=== PATIENT | female | born 1990 | race Caucasian/White ===

== ENCOUNTER 2017-10-31 13:31 | Outpatient (CLI) | payer OTHER ==
[2017-10-31] MEDS ORDERED: IOTHALAMATE MEGLUMINE 50 ML VIAL ONE (14:03)
[2017-10-31] MEDS ORDERED: LIDOCAINE 1% 10 ML MDV ONE (14:03)
[2017-10-31] MEDS ORDERED: GADOPENTETATE DIMEGLUMINE 5 ML VIAL IVP ONE ×2 (14:03→14:51)
[2017-10-31] MEDS ORDERED: IOTHALAMATE MEGLUMINE 50 ML VIAL IVP ONE (14:51)
[2017-10-31] MEDS: BUFFERED LIDOCAINE 10 ML SYRINGE IU ONE ×2 (14:53→14:54)
--- NOTE | 2017-10-31 17:26 | XRAY Report ---
FLUOROSCOPICALLY-GUIDED LEFT WRIST INJECTION FOR MR ARTHROGRAM: 10/31/2017 CLINICAL INDICATION: Pain. FINDINGS: Following obtaining informed consent, the patient's left wrist was prepped and draped in the usual sterile fashion. The skin and soft tissues were anesthetized with lidocaine. A butterfly needle was inserted into the radiocarpal joint space, and a combination of iodinated contrast, dilute gadolinium, and lidocaine was injected intraarticularly. The patient tolerated the procedure well. No immediate complications. Spot image reveals no evidence of contrast extravasation. IMPRESSION: SUCCESSFUL LEFT WRIST INJECTION FOR MR ARTHROGRAM. FLUOROSCOPY TIME: 29 seconds; 1 spot image obtained. TD: 10/31/2017 15:53
--- NOTE | 2017-11-01 18:03 | MRI Report ---
EXAM: LEFT WRIST MRI ARTHROGRAM WITH CONTRAST EXAM DATE: 10/31/2017 02:00 PM. CLINICAL HISTORY: Pain in left wrist. COMPARISON: None. TECHNIQUE: Multiplanar, multisequence T1-weighted and fluid-sensitive sequences of the wrist after an arthrographic injection of dilute gadolinium, dictated under a separate exam. Other: None. FINDINGS: Bones: No fractures or subluxations. No marrow edema. No bone lesions. Cartilage: The articular cartilage is unremarkable. Small focal tear lamina triangular fibrocartilage with contrast distal radioulnar joint. Ligaments: The scapholunate and lunotriquetral ligaments are intact. The visualized other intrinsic, extrinsic and collateral ligaments are unremarkable. Tendons: The extensor compartments I through and flexor tendons are unremarkable. Musculature: No edema or fatty atrophy. Other: The contents of the carpal tunnel, including the median nerve, are unremarkable. Guyons canal is unremarkable. No ganglion cysts. The subcutaneous tissues are unremarkable. IMPRESSION: Small focal central tear triangular fibrocartilage with contrast seen at the distal radio ulnar joint. Gonzalez classification 1A (images 8 series 601 and images 7 series 701). RADIA MUSCULOSKELETAL RADIOLOGY SECTION Referring Provider Line: [phone] SITE ID: [id number]
== END 2017-10-31 13:32 | disposition home or self-care (01) ==
LOC: DI 13:31
PROVIDERS: ATTEND Physician Assistant
DX: M25.532 Pain in left wrist (principal)
CPT/HCPCS: 25246; 73222; 77002; Q9961

== ENCOUNTER 2023-09-05 13:01 | Emergency (ER) | payer OTHER ==
[2023-09-05 13:28] VITALS: BP 132/94; O2SAT 99
--- NOTE | 2023-09-05 13:52 | ED Physician Documentation ---
History of Present Illness - Stated complaint Stated Complaint: COUGH/CONGESTION - Chief complaint Chief Complaint: Resp - History obtained from History obtained from: Patient - Additonal information Additional information: The patient comes to the emergency department with chief complaint of runny nose, cough, sore throat, and fatigue for the last 2 days. She states that a lot of people at work have been sick and she thinks she got it there. What prompted her to come to the ER today as she just felt so tired. She does not think she can go to work because she is so tired. No fevers or chills. No other complaints at this time. PD PAST MEDICAL HISTORY - Past Medical History Past Medical History: Yes Cardiovascular: None Respiratory: None Neuro: None Endocrine/Autoimmune: None GI: None CONDUIT BENDER: None : None HEENT: None Psych: Depression Musculoskeletal: None Derm: None - Past Surgical History Past Surgical History: Yes General: Other - Present Medications Home Medications: Ambulatory Orders Medication Instructions Recorded Confirmed buPROPion [Wellbutrin Sr] 300 mg PO DAILY 09/05/23 - Allergies Allergies/Adverse Reactions: Allergies Allergy/AdvReac Type Severity Reaction Status Date / Time No Known Drug Allergies Allergy Verified 09/05/23 13:26 - Social History Does the pt smoke?: No Smoking Status: Never smoker Does the pt drink ETOH?: No Does the pt have substance abuse?: No - Immunizations Immunizations are current?: Yes - POLST Patient has POLST: No PD ED PE NORMAL - Vitals Vital signs reviewed: Yes - General General: Alert and oriented X 3, No acute distress, Well developed/nourished - HEENT HEENT: Atraumatic, PERRL, EOMI, Moist mucous membranes, Pharynx benign - Neck Neck: Supple, no meningeal sign, No adenopathy - Cardiac Cardiac: RRR, No murmur - Respiratory Respiratory: No respiratory distress, Clear bilaterally - Abdomen Abdomen: Soft, Non tender, Non distended - Derm Derm: Normal color, Warm and dry, No rash - Extremities Extremities: No deformity, No edema - Neuro Neuro: Alert and oriented X 3 - Psych Psych: Normal mood, Normal affect Results - Vitals Vitals: Vital Signs - 24 hr 09/05/23 13:19 Temperature 36.9 C Heart Rate 78 Respiratory 16 Rate Blood Pressure 132/94 H O2 Saturation 99 Oxygen O2 Source Room air PD Medical Decision Making - ED course Complexity details: reviewed results, re-evaluated patient, considered differential, d/w patient ED course: The patient's examination was reassuring and her respiratory PCR panel is pending this time. I did not feel any emergent interventions were indicated in the emergency department and I felt she was stable for discharge home. I have given her a work note we have discussed symptomatic management at home and the usual indications for return. Departure - Departure Disposition: Home, Self Care Clinical Impression: Viral syndrome Condition: Stable Instructions: ED Viral Syndrome Comments: Your viral panel is pending at this time. Most likely have one of the many common viruses that are going around and causing upper respiratory symptoms. We will call you if there are any significant positive results. You may also follow your results by going to our website at [email or web address], clicking on the "my [facility]" tab and signing up for the patient portal. Please drink plenty of fluids, take ibuprofen and Tylenol as needed for fever, and schedule appointment to follow-up with your primary doctor for further concerns. In general, as with all viruses, this illness is expected to be self-limited and to resolve on its own within the next several days to a couple of weeks. Symptoms should start to improve sooner than that, however. You may return to work as soon as you are feeling well enough to do so. Forms: PCP List, Activity restrictions
[2023-09-05 14:23] LABS: B. PARAPERTUSSIS- RESP PCR PAN NOT DETECTED; B. PERTUSSIS- RESP PCR PANEL NOT DETECTED; C. PNEUMONIAE- RESP PCR PANEL NOT DETECTED; CORONAVIRUS 229E-RESP PCR NOT DETECTED; CORONAVIRUS HKU1-RESP PCR NOT DETECTED; CORONAVIRUS NL63-RESP PCR NOT DETECTED; CORONAVIRUS OC43-RESP PCR NOT DETECTED; HUMAN METAPNEUMOVIRUS NOT DETECTED; INFLUENZA A- RESP PCR PANEL NOT DETECTED; INFLUENZA B - RESP PCR PANEL NOT DETECTED; M. PNEUMONIAE- RESP PCR PANEL NOT DETECTED; PARAINFLUENZA VIRUS 1 NOT DETECTED; PARAINFLUENZA VIRUS 2 NOT DETECTED; PARAINFLUENZA VIRUS 3 NOT DETECTED; PARAINFLUENZA VIRUS 4 NOT DETECTED; RHINOVIRUS/ENTEROVIRUS NOT DETECTED; RSV- RESP PCR PANEL NOT DETECTED
[2023-09-05 14:26] LABS: SARS-CoV-2 -RESP PCR PANEL DETECTED
== END 2023-09-05 14:05 | disposition home or self-care (01) ==
LOC: ED 13:01
DX: B34.9 Viral infection, unspecified (principal); Z11.52 Encounter for screening for COVID-19
CPT/HCPCS: 87633; 99283

== ENCOUNTER 2023-10-26 11:30 | Outpatient (CLI) | payer OTHER ==
--- NOTE | 2023-10-26 15:53 | XRAY Report ---
PROCEDURE: Knee 3V LT INDICATIONS: SPRAIN OF OTHER SPECIFIED PARTS OF LEFT KNEE TECHNIQUE: 3 views of the knee(s) were acquired. COMPARISON: None. FINDINGS: Bones: No fractures or dislocations. No suspicious bony lesions. Soft tissues: Moderate knee joint effusion. No suspicious soft tissue calcifications or masses. IMPRESSION: Moderate effusion. No visualized acute fracture or dislocation. However, occult injury cannot be excl uded. Recommend short interval imaging follow-up in 7-10 days as clinically indicated for additional evaluation. Reviewed by: Abby Perez MD on 10/26/2023 3:52 PM PDT Approved by: Abby Perez MD on 10/26/2023 3:52 PM PDT Station ID: [id number]
== END 2023-10-26 11:45 | disposition home or self-care (01) ==
LOC: DI.N 11:30
PROVIDERS: ATTEND Physician Assistant Medical
DX: M25.462 Effusion, left knee (principal)